=== PATIENT | male | born 1990 | race Caucasian/White ===

== ENCOUNTER 2016-04-04 10:47 | Emergency (ER) | payer OTHER ==
[~2016-04-04] VITALS: Ht 175.3 cm; Wt 84.5 kg
[2016-04-04 11:26] LABS: HEMATOCRIT 44.3 % (38.0-50.0); MCH 29.5 PG (29.0-34.0); MCHC 35.4 G/DL (30.0-36.0); MCV 83.1 FL (86-99); MEAN PLAT.VOLUME 9.2 uM^3 (9.0-12.4); PLATELET COUNT 340 K/uL (156-360); RBC DIS.WIDTH-CV 12.8 % (11.8-14.6); RBC DIS.WIDTH-SD 38.7 % (39-53); RED BLOOD COUNT 5.33 M/uL (4.00-5.50); WHITE BLOOD COUNT 5.5 K/uL (4.1-10.2)
[2016-04-04 11:41] LABS: CHLORIDE 107 mEq/L (99-109); POTASSIUM 4.4 mEq/L (3.7-5.4); SODIUM 141 mEq/L (136-147)
[2016-04-04 11:43] LABS: GLUCOSE 91 mg/dL (70-99)
[2016-04-04 11:44] LABS: ANION GAP 8 MEQ/L (2-14)
[2016-04-04 11:45] LABS: TOTAL BILIRUBIN 1.5 mg/dL (0.0-1.0)
[2016-04-04 11:47] LABS: ALKALINE PHOSPHATASE 76 IU/L (3-129)
[2016-04-04 11:48] LABS: UREA NITROGEN (BUN) 11 mg/dL (9-23)
[2016-04-04 11:50] LABS: GFR ESTIMATE (CALCULATED) > 59 mL/min/
[2016-04-04] MEDS ORDERED: ZINC50 M1 PO (12:11)
[2016-04-04] MEDS ORDERED: VITAMIN D-32000 UNI2 PO (12:12)
[2016-04-04 12:56] LABS: ADD MIUA? NO; BILIRUBIN NEGATIVE; BLOOD NEGATIVE; COLOR YELLOW ((YELLOW)); GLUCOSE (STRIP) NEGATIVE; KETONES NEGATIVE; LEUKOCYTES NEGATIVE; NITRITE NEGATIVE; PH, URINE 8.5 (5-8); PROTEIN (STRIP) NEGATIVE; SPECIFIC GRAVITY 1.019 (1.000-1.030); UCUL ADDED? NO; UROBILINOGEN 0.2 MG/DL (0.2-1.0)
[2016-04-04] MEDS ORDERED: BENTYL20 MG PO (14:39)
[2016-04-04] MEDS ORDERED: ZOFRAN ODT4 MG PO (14:39)
[2016-04-04 15:03] VITALS: BP 114/67
== END 2016-04-04 15:04 | disposition home or self-care (01) ==
LOC: EME 10:47
DX: K52.9 Noninfective gastroenteritis and colitis, unspecified (principal); R10.33 Periumbilical pain; R11.0 Nausea
CPT/HCPCS: 74020; 80053; 81003; 85027; 99281; 99284; J1885